=== PATIENT | female | born 1940 | race African-American/Black ===

== ENCOUNTER → 2020-12-18 | Outpatient (CLI) | payer MEDICARE | END | disposition home or self-care (01) | LOC: CFH 12:13 | PROVIDERS: ATTEND Internal Medicine | DX: Z12.31 Encounter for screening mammogram for malignant neoplasm of breast (principal) | CPT/HCPCS: 77063; 77067 ==

== ENCOUNTER 2021-01-06 15:29 | Outpatient (CLI) | payer MEDICARE | END 2021-01-06 23:59 | disposition home or self-care (01) | LOC: CVU 15:29 | PROVIDERS: ATTEND Internal Medicine | DX: I35.8 Other nonrheumatic aortic valve disorders (principal); I10 Essential (primary) hypertension; M81.0 Age-related osteoporosis without current pathological fracture; R73.03 Prediabetes | CPT/HCPCS: 93308; 93321; 93325; 93356 ==